=== PATIENT | male | born 2000 | race Caucasian/White ===

== ENCOUNTER 2020-04-20 17:35 | Outpatient (REF) | payer OTHER, SELFPAY ==
[2020-04-21 11:35] LABS: COVID-19 RT-PCR UVMMC Result Negative (Negative)
== END 2020-04-20 17:55 ==
LOC: NCHCN 17:35
PROVIDERS: PCP Internal Medicine; Visit Provider Nurse Practitioner Family
DX: R06.02 Shortness of breath (principal)
CPT/HCPCS: U0003

== ENCOUNTER 2020-06-07 01:00 | Outpatient (CLI) | payer OTHER, SELFPAY ==
--- NOTE | 2020-06-07 | DI.RAD_ITS ---
EXAM: RF BARIUM SWALLOW CLINICAL HISTORY: DYSPHAGIA,R13.13 TECHNIQUE: 2D and realtime digital imaging was performed. CONTRAST MATERIAL: Oral barium Oral water soluble contrast was administered. COMPARISON: No exams were available for comparison FINDINGS: CHEST X-RAY: The heart and pulmonary vasculature are within normal limits. The lungs are clear. No pl eural effusion or pneumothorax is present. The bones are within normal limits fo the patient's age. ESOPHAGRAM: The esophagus is patent with no evidence for erosions, fold thickening, strictures, or ma sses. With regards to the motility, there is a normal primary stripping wave. No tertiary contraction s were noted. There is no hiatal hernia or gastroesophageal reflux. IMPRESSION: Normal esophogram
[2020-06-07] MEDS: Barium Sulfate 60% W/V 355 ML BTL PO (09:58)
[2020-06-07] MEDS: Simethicone/Sod Bicarb/Cit Ac, 4 gram PACKET 1 PACKET PO (10:02)
== END 2020-06-07 01:20 ==
PROVIDERS: PCP Internal Medicine; Visit Provider Internal Medicine
DX: R13.13 Dysphagia, pharyngeal phase (principal)
CPT/HCPCS: 74221; J3490

== ENCOUNTER 2020-11-26 10:48 | Outpatient (REF) | payer OTHER, SELFPAY ==
[2020-11-27 12:37] LABS: COVID-19 RT-PCR UVMMC Result Negative (Negative)
== END 2020-11-26 11:08 ==
LOC: NCHCN 10:48
PROVIDERS: PCP Internal Medicine; Visit Provider Internal Medicine
DX: Z20.822 Contact with and (suspected) exposure to COVID-19 (principal)
CPT/HCPCS: U0003

== ENCOUNTER 2021-05-31 16:24 | Outpatient (REF) | payer OTHER, SELFPAY ==
[2021-06-02 11:53] LABS: COVID-19 RT-PCR UVMMC Result Negative (Negative)
== END 2021-05-31 16:25 | disposition home or self-care (01) ==
LOC: NCHCN 16:24
PROVIDERS: PCP Internal Medicine; Visit Provider Family Medicine
DX: Z20.822 Contact with and (suspected) exposure to COVID-19 (principal)
CPT/HCPCS: U0003

== ENCOUNTER 2021-10-21 11:42 | Outpatient (REF) | payer OTHER, SELFPAY ==
[2021-10-23 15:30] LABS: COVID-19 RT-PCR UVMMC Result Negative (Negative)
== END 2021-10-21 11:43 | disposition home or self-care (01) ==
LOC: NCHCN 11:42
PROVIDERS: PCP Internal Medicine; Visit Provider Family Medicine
DX: Z20.822 Contact with and (suspected) exposure to COVID-19 (principal); J06.9 Acute upper respiratory infection, unspecified
CPT/HCPCS: U0003